=== PATIENT | male | born 1945 | race Caucasian/White ===

== ENCOUNTER → 2016-08-11 | Outpatient (CLI) | payer OTHER ==
[~2016-08-11] MED LIST: GADAVIST IV PRN
--- NOTE | 2016-08-11 13:44 | DIAGNOSTIC IMAGING REPORT ---
MRI ABDOMEN COMBO CLINICAL HISTORY: Renal mass TECHNIQUE: Imaging was performed prior to and following IV contrast injection ((9.5 cc of intravenous Gadavist). COMPARISON STUDY: Noncontrast outside CT scan dated 07/28/2016 FINDINGS: There are T2 bright nonenhancing hepatic lesions measuring up to 17 mm in diameter. These are consistent with hepatic cysts. No splenic masses are visualized. No adrenal masses are visualized. There is no evidence of abdominal aortic aneurysm. No pancreatic masses are visualized. No gallbladder abnormalities are visualized. There are few tiny renal cortical cysts. There is a 19 mm exophytic lower pole left renal mass which demonstrates mild contrast enhancement. This is consistent with a solid renal neoplasm. The renal vein appears patent. The left lower pole renal mass contains no significant fat on in and out of phase imaging. There is no pathologic adenopathy. IMPRESSION: 1. 19 mm exophytic lower pole left renal mass which demonstrate mild contrast enhancement. This is therefore consistent with a solid renal neoplasm Electronically signed by: Jonnie Ramon M.D. 08/11/2016 1:43 PM Dictated Date/Time: 08/11/2016 1:31 PM
== END | disposition home or self-care (01) ==
LOC: C.MRI 12:41
PROVIDERS: ATTEND Family Medicine
DX: N28.89 Other specified disorders of kidney and ureter (principal)

== ENCOUNTER → 2016-09-08 | Outpatient (CLI) | payer OTHER ==
--- NOTE | 2016-09-08 13:35 | PULMONARY FUNCTION TEST ---
CLINICAL DATA: 71-year-old male with a height of 71 inches and a weight of [address] Taylor Smith for evaluation of an abnormal CT scan of the chest. Spirometry pre- and post-bronchodilator, lung volumes, and DLCO were performed. FINDINGS: Prebronchodilator spirometry demonstrates mild obstructive small airways disease. FVC was 101% of predicted. FEV1 was 89% of predicted. LEZ99-09 was 55% of predicted. There was mild improvement after inhaled bronchodilator. FVC improved 2% to 102% of predicted. FEV1 improved 5% to 93% of predicted. LKK44-06 improved 16% to 64% of predicted. Lung volumes are normal. DLCO is normal. IMPRESSION: Mild obstructive small airways disease with slight improvement after inhaled bronchodilator. MTDD
--- NOTE | 2016-09-15 07:19 | CODING QUERY MEDICAL NECESSITY ---
CQSUPPORTING DIAGNOSIS NEEDED A supporting diagnosis is required for the test/procedure performed on this patient in order for us to be reimbursed by the patient's insurance. Please provide a supporting diagnosis for the following test/procedure listed below next to the test name along with your signature. *If there is no additional diagnosis for this patient that would support the following test/procedure please document that below next to the test/procedure. Test(s)/Procedure(s) that require a supporting diagnosis: CANELO 09/08/16 PULMONARY FUNCTION TESTING Provider Signature: Date: Thank you Talya Landon [facility] Information Management Once completed, please kindly fax back to [phone] For questions please call [phone]
== END | disposition home or self-care (01) ==
LOC: C.RC 10:13
PROVIDERS: ATTEND Family Medicine
DX: R93.8 Abnormal findings on diagnostic imaging of other specified body structures (principal); J45.909 Unspecified asthma, uncomplicated; J44.9 Chronic obstructive pulmonary disease, unspecified

== ENCOUNTER → 2017-03-07 | Outpatient (CLI) | payer OTHER ==
[2017-03-07 18:01] LABS: BASO % 0.9 %; BASO ABS # 0.05 K/uL (0-0.2); COMPLETE YES; IG% 0.2 %; LYMPH % 14.6 %; LYMPH ABS # 0.82 K/uL (1.2-3.4); MEAN CORPUSCULAR HEMOGLOBIN 31.5 pg (25-34); MEAN CORPUSCULAR HGB CONC 34.3 g/dl (32-36); MEAN PLATELET VOLUME 8.5 fL (7.4-10.4); MONO % 9.4 %; NEUT % 64.9 %; PLATELET COUNT 130 K/uL (130-400); RED BLOOD COUNT 4.35 M/uL (4.7-6.1); WHITE BLOOD COUNT 5.62 K/uL (4.8-10.8)
[2017-03-07 18:19] LABS: AST/SGOT 16 U/L (15-37); BLOOD UREA NITROGEN 21 mg/dl (7-18); BUN/CREATININE RATIO 24.7 (10-20); CALCIUM 8.9 mg/dl (8.5-10.1); CARBON DIOXIDE 30 mmol/L (21-32); CHLORIDE 103 mmol/L (98-107); CREATININE 0.84 mg/dl (0.60-1.40); GLUCOSE 84 mg/dl (70-99); SODIUM 136 mmol/L (136-145)
[2017-03-07 18:29] LABS: ALB/GLOB RATIO 1.1 (0.9-2); ALKALINE PHOSPHATASE 77 U/L (45-117); ALT/SGPT 30 U/L (12-78); CHOLESTEROL 154 mg/dl (0-200); CHOLESTEROL/HDL RATIO 3.9; HDL CHOLESTEROL 39 mg/dl; LDL CHOLESTEROL CALCULATED 81 mg/dl; TRIGLYCERIDES 170 mg/dl (0-150); VERY LOW DENSITY LIPOPROT CALC 34 mg/dl
== END | disposition home or self-care (01) ==
LOC: C.LABMFLN 16:36
PROVIDERS: ATTEND Family Medicine
DX: Z12.5 Encounter for screening for malignant neoplasm of prostate (principal); I10 Essential (primary) hypertension; E78.5 Hyperlipidemia, unspecified

== ENCOUNTER → 2017-08-21 | Outpatient (CLI) | payer OTHER ==
[~2017-08-21] MED LIST changes: -GADAVIST IV PRN; +OPTIRAY 320 IV PRN
--- NOTE | 2017-08-21 11:48 | DIAGNOSTIC IMAGING REPORT ---
CT SCAN OF THE ABDOMEN COMBO RENAL MASS PROTOCOL CLINICAL HISTORY: Follow-up left renal mass. COMPARISON STUDY: Abdominal CT dated 02/06/2017 and abdominal MRI dated 08/11/2016. TECHNIQUE: Before and following the IV administration of 94 cc of Optiray 320, CT scan of the abdomen is performed from the lung bases to the pelvic inlet utilizing the renal mass protocol. Images are reviewed in the axial, sagittal, and coronal planes. IV contrast was administered without complication. A dose lowering technique was utilized adhering to the principles of ALARA. CT DOSE: 1980.03 mGycm FINDINGS: Lung bases: The heart is normal in size and without pericardial effusion. There are coronary artery calcifications. There are too numerous to count pulmonary nodules scattered throughout the lung bases. No airspace consolidation is seen typical for pneumonia and there is no pleural effusion. There are numerous calcified granulomas. An irregular nodular density in the right middle lobe as seen on image #36 and measures 2.3 cm. These findings are similar to 02/06/2017. There is a tiny hiatal hernia. Calcified hilar nodes are partially visualized. Liver: The contrast-enhanced liver is normal in size, contour, and attenuation. There is no intrahepatic biliary ductal dilatation. The hepatic veins and portal veins are patent. Hepatic cysts measure up to 1.7 cm. Additional subcentimeter hepatic hypodensities also likely represent cysts but are too small for definitive characterization. Gallbladder: Unremarkable. Spleen: Normal in size and attenuation. Pancreas: Unremarkable. Adrenal glands: Unremarkable. Kidneys: The contrast enhanced kidneys demonstrate mild cortical atrophy and are without hydronephrosis. Punctate nonobstructing renal calculi are suggested on the unenhanced series. The kidneys kidneys enhance and excrete symmetrically. Again seen is an exophytic lesion arising from the lower pole of left kidney which measures 2.2 x 2.0 cm. This demonstrates faint postcontrast enhancement and has not significantly changed in size from 02/06/2017. No additional enhancing renal mass is identified. There is no evidence of urothelial lesion involving the renal collecting system bilaterally or the proximal ureters. Abdominal vasculature: The abdominal aorta is normal in course and caliber noting moderate atherosclerotic calcification. Bowel: Results portions of the small bowel and colon are normal in caliber. No bowel obstruction is seen. Moderate colonic fecal retention is identified. The appendix is well-visualized and normal. Peritoneum: There is no intraperitoneal free air or abdominal ascites. There is a small fat-containing umbilical hernia. Lymphadenopathy: None. Skeletal structures: The skeletal structures are osteopenic. Mild lumbosacral spondylosis is observed. No lytic or blastic lesions are seen. IMPRESSION: 1. There has been no significant change in the appearance of a 2.2 cm exophytic lesion arising from the lower pole of the left kidney as compared to 02/06/2017. This demonstrates faint postcontrast enhancement and should be considered renal cell carcinoma until proven otherwise. 2. No additional enhancing renal cortical mass is identified. 3. Moderate constipation. 4. Numerous pulmonary nodules and opacities are again seen at both lung bases. Correlation with the patient's pulmonary history will be required. 5. There is no retroperitoneal adenopathy or evidence of metastatic disease in the abdomen. Electronically signed by: Terrence Clancy M.D. 08/21/2017 11:47 AM Dictated Date/Time: 08/21/2017 11:36 AM
== END | disposition home or self-care (01) ==
LOC: C.CTS 11:03
PROVIDERS: ATTEND Urology
DX: N28.89 Other specified disorders of kidney and ureter (principal); N20.0 Calculus of kidney; K59.00 Constipation, unspecified; R91.1 Solitary pulmonary nodule

== ENCOUNTER 2017-11-21 06:38 | Inpatient (IN) | payer OTHER ==
[2017-10-26 09:04] VITALS: BMI 29.0
--- NOTE | 2017-10-31 16:25 | PAT Medication Instructions ---
Service Date Oct 31, 2017. Current Home Medication List Albuterol Hfa (Ventolin Hfa), 2 PUFFS INH QID PRN for COUGH/WHEEZING Aspirin (Aspirin Chewable), 81 MG PO HS Losartan Potassium (Cozaar), 50 MG PO HS Lutein-Zeaxanthin (Lutein), 5 MG PO HS Mometasone Furoate (Nasal) (Mometasone Furoate), 2 SPRAYS CAMRON DAILY PRN for PRN Omeprazole (Cvs Omeprazole), 20 MG PO QAM Rosuvastatin Calcium (Rosuvastatin Calcium), 1 TAB PO HS Medication Instructions For Your Scheduled Surgery - Hold the following medications 2 weeks prior to surgery: Lutein-Zeaxanthin (Lutein), 5 MG PO HS - Check with surgeon and prescribing physician for instructions: Aspirin (Aspirin Chewable), 81 MG PO HS - Take the following medications the morning of surgery with a sip of water: Omeprazole (Cvs Omeprazole), 20 MG PO QAM Mometasone Furoate (Nasal) (Mometasone Furoate), 2 SPRAYS CAMRON DAILY PRN for PRN (if needed) Albuterol Hfa (Ventolin Hfa), 2 PUFFS INH QID PRN for COUGH/WHEEZING (if needed) - Take the following medications as scheduled the night before surgery: Albuterol Hfa (Ventolin Hfa), 2 PUFFS INH QID PRN for COUGH/WHEEZING (if needed) Losartan Potassium (Cozaar), 50 MG PO HS Mometasone Furoate (Nasal) (Mometasone Furoate), 2 SPRAYS CAMRON DAILY PRN for PRN (if needed) Rosuvastatin Calcium (Rosuvastatin Calcium), 1 TAB PO HS If you have any questions please call us at [phone] or [phone] or [phone]
[2017-11-01 10:35] VITALS: BMI 28.0
[2017-11-01 12:09] LABS: BASO ABS # 0.05 K/uL (0-0.2); EOS % 10.4 %; EOS ABS # 0.53 K/uL (0-0.5); HEMATOCRIT 40.6 % (42-52); HEMOGLOBIN 14.2 g/dL (14.0-18.0); IG# 0.02 K/uL (0.00-0.02); LYMPH % 17.3 %; LYMPH ABS # 0.88 K/uL (1.2-3.4); MEAN CELL VOLUME 91.6 fL (80-100); MEAN CORPUSCULAR HEMOGLOBIN 32.1 pg (25-34); MEAN PLATELET VOLUME 8.8 fL (7.4-10.4); MONO % 7.6 %; MONO ABS # 0.39 K/uL (0.11-0.59); NEUT % 63.3 %; NEUT ABS # 3.23 K/uL (1.4-6.5); PLATELET COUNT 142 K/uL (130-400); RED CELL DISTRIBUTION WIDTH CV 13.3 % (11.5-14.5); RED CELL DISTRIBUTION WIDTH SD 44.9 fL (36.4-46.3)
[2017-11-01 12:17] LABS: CALCIUM 9.4 mg/dl (8.5-10.1); CREATININE 0.98 mg/dl (0.60-1.40); POTASSIUM 4.1 mmol/L (3.5-5.1)
[2017-11-21] VITALS (8 sets, daily range): BP systolic 106–137; BP diastolic 65–80; PULSE 70–104; TEMP 36.3–37; O2SAT 90–97; Ht 180.3 cm; Wt 92.9 kg
[~2017-11-21] VITALS: Ht 180.3 cm; Wt 92.9 kg
[~2017-11-21 06:38] MED LIST changes: +ASPCH81X PO; +B-CO1TAB53 PO; +CEFAZOLIN 2000MG IV PUSH 15 ML IV SCH; +LACTATED RINGER'S 1000ML 1,000 ML IV SCH; +LOSA50TA6 PO; +LUTE15CA PO; +MOME6000 NAE; +Mega Red Krill Oil PO; +OMEP20TA40 PO; -OPTIRAY 320 IV PRN; +ROSU10TA26 PO; +VNTHFA/IN INH
[2017-11-21] MEDS ORDERED: BUPIVACAINE 0.5 % 5 MG/1 ML PF 10ML VIAL ONE (06:52)
[2017-11-21] MEDS ORDERED: GELATIN SPONGE SZ 100 ONE (06:52)
[2017-11-21] MEDS ORDERED: MANNITOL 25% 50 ML VIAL ONE (07:24)
[2017-11-21] MEDS ORDERED: ALBUMIN HUMAN 5% 12.5 GM/250 ML VIAL IV ONE (07:24)
[2017-11-21] MEDS ORDERED: ACETAMINOPHEN 1000 MG/100 ML IV IV ONE (07:24)
[2017-11-21] MEDS ORDERED: DexMEDEtomidine HCL IV 100 MCG/ML VIAL IV ONE (07:24)
[2017-11-21] MEDS ORDERED: MIDAZOLAM HCL 1 MG/ML 2ML VIAL ONE (07:33)
[2017-11-21] MEDS ORDERED: NEOSTIGMINE METHYLSULFATE 5 MG/5 ML SYR ONE (07:33)
[2017-11-21] MEDS ORDERED: ONDANSETRON INJ 2 MG/ML 2 ML VIAL ONE ×2 (07:33→09:38)
[2017-11-21] MEDS ORDERED: LIDOCAINE HCL 2% 2 ML VIAL (20MG/ML) ONE (07:33)
[2017-11-21] MEDS ORDERED: DEXAMETHASONE SOD INJ 4 MG/ML VIAL ONE (07:33)
[2017-11-21] MEDS ORDERED: FENTANYL CITRATE INJ 50 MCG/1 ML 2 ML VIAL ONE (07:33)
[2017-11-21] MEDS ORDERED: GLYCOPYRROLATE INJ 0.2 MG/ML VIAL ONE ×3 (07:33→10:59)
[2017-11-21] MEDS ORDERED: HYDROmorphone INJ 2 MG/ML SYR/VIAL ONE (07:33)
[2017-11-21] MEDS ORDERED: PROPOFOL IV EMULSION 10 MG/ML 20 ML VIAL ONE ×3 (07:33→11:37)
--- NOTE | 2017-11-21 08:19 | History & Physical Bridge Note ---
H&P Re-Evaluation Bridge Note: I have examined the patient, reviewed the History & Physical and in the interval since the performance of the History & Physical I have noted the following changes of clinical significance: No changes noted
[2017-11-21] MEDS ORDERED: PHENYLEPHRINE 100MCG/ML 5ML SYR IV PRN (09:00)
[2017-11-21] MEDS ORDERED: ATROPINE SULFATE 0.1 MG/ML 5ML SYR IV PRN (09:00)
[2017-11-21] MEDS ORDERED: ONDANSETRON INJ 2 MG/ML 2 ML VIAL IV PRN ×2 (09:00→11:15)
[2017-11-21] MEDS ORDERED: EpHEDrine SULFATE INJ 50 MG/ML AMP IV PRN (09:00)
[2017-11-21] MEDS ORDERED: HYDROmorphone INJ 2 MG/ML SYR/VIAL IV PRN (09:00)
[2017-11-21] MEDS ORDERED: PHENYLEPHRINE 100MCG/ML 5ML SYR ONE (09:38)
[2017-11-21] MEDS ORDERED: PHENYLEPHRINE HCL INJ 10 MG/ML VIAL ONE (09:38)
[2017-11-21] MEDS ORDERED: KETAMINE HCL INJ 50 MG/ML 10 ML VIAL ONE (10:33)
[2017-11-21] MEDS ORDERED: SODIUM CHLORIDE 0.9% INJ 10 ML VIAL ONE (10:38)
[2017-11-21] MEDS ORDERED: FLOSEAL HEMOSTATIC MATRIX 10ML TOP ONE (10:45)
[2017-11-21] MEDS ORDERED: TISSEEL FIBRIN SEALANT 4ML TOP ONE (10:46)
[2017-11-21] MEDS ORDERED: ROCURONIUM BROMIDE 10 MG/ML 5 ML VIAL ONE (10:53)
--- NOTE | 2017-11-21 11:12 | [facility] Post Operative Brief Note ---
Immediate Operative Summary Operative Date Nov 21, 2017. Pre-Operative Diagnosis Left renal mass Post-Operative Diagnosis Left renal mass Procedure(s) Performed Robotic assisted left laparoscopic partial nephrectomy Surgeon Dr. Donald Walker MD Welder Fitter Arc Surgeon(s) Eliseo Choe MD ;Levar Rios PA-C Estimated Blood Loss 50ml Findings Consistent with Post-Op Diagnosis Specimens A. Left renal mass Drains RICKY; solorzano Anesthesia Type General Complication(s) none Disposition Accompanied Pt To Recover: yes Disposition: Recovery Room / PACU
[2017-11-21] MEDS ORDERED: ACETAMINOPHEN 325 MG TAB PO PRN (11:15)
[2017-11-21] MEDS ORDERED: ACETAMINOPHEN/CODEINE 300/30MG TAB PO PRN ×2 (11:15)
[2017-11-21] MEDS ORDERED: ALBUTEROL HFA 8 GM INHALER INH PRN (11:15)
[2017-11-21] MEDS ORDERED: MoRPHine SULFATE 2 MG/ML CARP IV PRN ×2 (11:15)
[2017-11-21 11:32] LABS: BASO % 0.3 %; BASO ABS # 0.02 K/uL (0-0.2); EOS ABS # 0.08 K/uL (0-0.5); HEMATOCRIT 36.7 % (42-52); HEMOGLOBIN 12.5 g/dL (14.0-18.0); IG# 0.03 K/uL (0.00-0.02); LYMPH % 5.3 %; LYMPH ABS # 0.41 K/uL (1.2-3.4); MEAN CELL VOLUME 91.1 fL (80-100); MEAN PLATELET VOLUME 8.3 fL (7.4-10.4); MONO % 1.8 %; MONO ABS # 0.14 K/uL (0.11-0.59); NEUT % 91.2 %; NEUT ABS # 7.03 K/uL (1.4-6.5); PLATELET COUNT 116 K/uL (130-400); RED CELL DISTRIBUTION WIDTH CV 13.4 % (11.5-14.5); RED CELL DISTRIBUTION WIDTH SD 44.7 fL (36.4-46.3); WHITE BLOOD COUNT 7.71 K/uL (4.8-10.8)
[2017-11-21 11:43] LABS: MEAN CORPUSCULAR HGB CONC 34.1 g/dl (32-36)
[2017-11-21 11:52] LABS: CALCIUM 7.9 mg/dl (8.5-10.1); CREATININE 0.84 mg/dl (0.60-1.40); POTASSIUM 4.8 mmol/L (3.5-5.1)
--- NOTE | 2017-11-21 11:59 | [facility] Operative Report ---
Operative Report Operative Date Nov 21, 2017. Pre-Operative Diagnosis Left renal mass Post-Operative Diagnosis Left renal mass Procedure(s) Performed Robotic assisted left laparoscopic partial nephrectomy Surgeon Dr. Donald Walker MD Supervisor Road Administrator Surgeon(s) Eliseo Choe MD ;Levar Rios PA-C Estimated Blood Loss 50ml Findings Warm ischemia time 8 minutes Specimens A. Left renal mass Drains RICKY; solorzano Anesthesia Type General Complication(s) none Disposition yes Recovery Room / PACU Description of Procedure Patient was identified in the preoperative holding area, appropriate informed consents reviewed and completed and the patient was transported to the operating suite. Upon arrival he received appropriate preoperative antibiotics in the form of Ancef. Adequate general anesthesia was achieved, a Solorzano catheter was introduced, and the patient was placed in a zzafh-[id number]-whby left side up lateral decubitus position where he was padded and braced in standard fashion prior to sterile prep and drape. To begin the case, Veress needle was passed in the left upper quadrant insufflation of the abdomen to 15 mmHg achieved. Tentative port sites were located on the abdominal wall, and a 12 mm Visiport was introduced just lateral to the rectus approximately 2 cm above the umbilicus. Inspection after placement revealed adhesive disease in the left lateral aspect of the abdominal wall there were no midline adhesions. I looked at my tentative port locations, which included a robotic port just lateral to the rectus muscle 2 fingerbreadths below the costal margin, a second robotic port approximately 5 cm inferior to the initial 12 mm Visiport and 2 cm lateral. Additionally located in area infraumbilically and supraumbilically to place to 12 mm podiatry assistant ports. All of these locations were free of adhesions and I was able to place these ports under direct vision without difficulty. We then docked the robot and I began by lysing adhesions for approximately 10 minutes. After opening the adhesions and exposing the underlying colon, was able to medialize the colon and gently dissected the spleen cephalad. I continue to trace the area behind the colon until identified the gonadal vein. The ureter was located just lateral to this and I was able to create a plane behind the gonadal and ureter onto the psoas muscle and elevate both structures. We traced the anterior surface of the gonadal vein until it intersected with the renal vein. At that time I was able to create a new plane lateral to the gonadal vein and excluded from my packet which was elevating the kidney. Better visualization of the renal vein and was able to fully dissect circumferentially around the vein to create a potential passage for a bulldog clamp. Immediately posterior to the renal vein, encountered the renal artery was able to trace this back to its junction with the aorta. I exposed the length of approximately 3 cm and made sure was clear circumferentially of all adhesions and other tissue. Of note, immediately adjacent to the vein there was a separate vascular structure which was directed towards the kidney, I skeletonize this fully without transecting it. Before placing clamps, I turned my attention of the lower pole of the kidney and identification of the tumor. A laparoscopic ultrasound was advanced through 1 of the podiatry assistant ports and ultrasonography of the kidney completed. Inspection of the lower pole revealed a clearly identifiable tumor protruding from the inferior medial aspect of the kidney. I subsequently opened Gerota's fascia and expose healthy appearing renal parenchyma circumferentially around the tumor. Of note the medial aspect of the tumor had relatively close oximetry to the ureter and renal pelvis but I was able to easily avoid the structures. After confirming with the second renal ultrasound, I marked my locations around the perimeter of the tumor from my resection. I preplaced to V lock sutures into the abdomen. 12.5 g of mannitol was introduced via the IV. Time was marked as replaced a short straight bulldog clamp across the primary renal artery, the second vascular structure inferior to the renal vein was controlled with a short curved bulldog clamp, and a long bulldog clamp was placed across the renal vein. And then turned my attention to the tumor, there was appropriate blanching of the kidney and utilizing monopolar scissors, was able to use a combination of gentle electrocautery and sharp dissection entirely resect the tumor. There appeared to be a small violation of the collecting system at the deepest aspect of this resection. There was excellent hemostasis. After removing the tumor, grabbed her preplaced V lock suture and performed a running renoraphy with sliding clip technique. After 3 passes across the defect, I was able to unclamp the vascular structures in the hilum. In total, warm ischemia time was 8 minutes. I placed one additional stitch after unclamping, but there was excellent hemostasis from the defect. We placed FloSeal coagulant across the defect followed by Tisseel over the top. Gerota's fascia was reapproximated to cover the defect. A RICKY drain was introduced through the lateralmost port. The robot was undocked after collecting the specimen into an Endo Catch bag. Specimen was extracted through the infraumbilical midline port. Fascia in this location was closed with 2 Vicryl [id number] sutures. The supraumbilical incision was closed in the same fashion with a single [id number] Vicryl suture. The 12 mm camera port lateral to the rectus muscle was closed in the same fashion. Skin and all incisions was infiltrated with half percent Marcaine before closure with 4-0 Monocryl. Dermabond was placed over the incisions. Drain was sutured in place utilizing 0 silk. Case was subsequently concluded the patient extubated and taken to the PACU in stable condition. Of note, Dr. Eliseo Choe assisted me throughout the renal tumor resection and reconstruction. Levar Rios assisted me throughout the remaining aspects of the case and was present from beginning to end of the case. I attest to the content of the Intraoperative Record and any orders documented therein. Any exceptions are noted below.
--- NOTE | 2017-11-21 12:18 | Anesthesiology Progress Note ---
Anesthesia Post Op Note Date & Time Nov 21, 2017 at 12:18 Vital Signs Pain Intensity: 0 Vital Signs Past 12 Hours Date Time Temp Pulse Resp B/P (MAP) Pulse Ox O2 Delivery O2 Flow Rate FiO2 11/21/17 12:00 36.6 71 16 108/70 93 Nasal Cannula 4 Oxymask Partial Rebreather 11/21/17 11:50 76 16 119/67 95 Nasal Cannula 4 Oxymask Partial Rebreather 11/21/17 11:40 71 15 117/59 99 Oxymask 8 11/21/17 11:30 72 15 106/65 96 Oxymask 8 11/21/17 11:21 36.3 76 16 117/72 96 Oxymask 8 11/21/17 07:17 36.6 87 20 136/80 97 Room Air Notes Mental Status: alert / awake / arousable, participated in evaluation Pt Amnestic to Procedure: Yes Nausea / Vomiting: adequately controlled Pain: adequately controlled Airway Patency, RR, SpO2: stable & adequate BP & HR: stable & adequate Hydration State: stable & adequate Anesthetic Complications: no major complications apparent
[2017-11-21] MEDS ORDERED: FLUTICASONE PROPIONATE NA SPR 16 GM BTL PRN (13:00)
[2017-11-21] MEDS ORDERED: NURSING VERBAL MED ORDER ONE (13:00)
[2017-11-21] MEDS: LACTATED RINGER'S 1000ML 1,000 ML IV SCH ×2 (14:34→22:18)
[2017-11-21] MEDS: CEFAZOLIN IV 1,000 MG in SYRINGE 0 ML IV SCH ×2 (16:38→23:52)
[2017-11-21] MEDS: LOSARTAN POTASSIUM 50 MG TAB PO SCH (21:23)
[2017-11-21] MEDS: ROSUVASTATIN CALCIUM 10 MG TAB PO SCH (21:23)
[2017-11-22 02:49] VITALS: BP 124/75; PULSE 91; TEMP 36.6; O2SAT 93
[2017-11-22] MEDS: LACTATED RINGER'S 1000ML 1,000 ML IV SCH ×3 (05:30→21:05)
[2017-11-22 05:35] LABS: BASO % 0.1 %; BASO ABS # 0.01 K/uL (0-0.2); HEMATOCRIT 35.2 % (42-52); HEMOGLOBIN 11.7 g/dL (14.0-18.0); IG# 0.02 K/uL (0.00-0.02); LYMPH % 7.4 %; LYMPH ABS # 0.81 K/uL (1.2-3.4); MEAN CELL VOLUME 91.4 fL (80-100); MEAN CORPUSCULAR HEMOGLOBIN 30.4 pg (25-34); MEAN CORPUSCULAR HGB CONC 33.2 g/dl (32-36); MEAN PLATELET VOLUME 8.8 fL (7.4-10.4); MONO % 5.3 %; MONO ABS # 0.58 K/uL (0.11-0.59); NEUT ABS # 9.58 K/uL (1.4-6.5); PLATELET COUNT 137 K/uL (130-400); RED CELL DISTRIBUTION WIDTH CV 13.6 % (11.5-14.5); RED CELL DISTRIBUTION WIDTH SD 45.4 fL (36.4-46.3)
[2017-11-22 06:05] LABS: CALCIUM 8.1 mg/dl (8.5-10.1); CREATININE 0.96 mg/dl (0.60-1.40)
[2017-11-22 07:55] VITALS: BP 134/82; PULSE 96; TEMP 37.1; O2SAT 92
[2017-11-22] MEDS ORDERED: ACET300T3 PO (08:08)
--- NOTE | 2017-11-22 08:10 | Discharge Instructions ---
Discharge Instructions Date of Service Nov 22, 2017. Admission Reason for Admission: Left Renal Mass Discharge Discharge Diagnosis / Problem: left renal mass Discharge Goals Goal(s): Decrease discomfort, Improve function, Increase independence, Improve disease control, Prevent Disease Progression Activity Recommendations Activity Limitations: per Instructions/Follow-up section Lifting Limitations: none, no more than 25 pounds Exercise/Sports Limitations: gradually increase as tolerated, until after follow-up appointment May Resume Sexual Activity: when tolerated Shower/Bathe: tomorrow Driving or Machine Use: resume 1 day after discharge . Instructions / Follow-Up Instructions / Follow-Up Please keep your previously scheduled follow up appointment with Dr. Walker. Please call immediately if you experience bright red blood in your urine or if you have sudden onset of severe left flank pain. Current Hospital Diet Patient's current hospital diet: Clear Liquid Diet Discharge Diet Recommended Diet: Regular Diet Procedures Procedures Performed: Robotic assisted left laparoscopic partial nephrectomy Pending Studies Studies pending at discharge: no Medical Emergencies . Who to Call and When: Medical Emergencies: If at any time you feel your situation is an emergency, please call 911 immediately. . Non-Emergent Contact Non-Emergency issues call your: Urologist Call Non-Emergent contact if: you have a fever, temperature is above 101.5, your pain is not controlled, your pain is worsening . . "Provider Documentation" section prepared by Ivan Mckeon. . MD Drug Monitoring Program Search Results: patient reviewed within database, no issues identified
[2017-11-22] MEDS: PANTOprazole SOD 40 MG TAB PO SCH (08:50)
--- NOTE | 2017-11-22 09:40 | Clinical Documentation Query ---
CLINICAL DOCUMENTATION QUERY Dr. DELCID, In your clinical opinion is this patient being managed for: ( x) possible/suspected/likely L renal cell carcinoma, still to be ruled out ( ) Not Agree ( ) Other explanation of clinical findings (No explanation is considered a No Response) ( ) Unable to determine ( ) Need to Discuss (Phone CDS or qliq) (No discussion is considered a No Response) The medical record reflects the following clinical findings, treatment, and risk factors. Clinical Indicators: 72 yo male presenting with a L renal mass. Radiology report from August 2017 indicates lesion should be considered renal cell carcinoma until proven otherwise. Treatment: L partial nephrectomy, pending pathology Risk Factors: age Please clarify and document your clinical opinion in the progress notes and discharge summary. Terms such as "probable", "suspected", "likely", "questionable", "possible", or "still to be ruled out" are acceptable. IF IN AGREEMENT, YOU MUST DOCUMENT ABOVE DIAGNOSTIC STATEMENT IN DAILY PROGRESS NOTES AND DISCHARGE SUMMARY. This document is not part of the patient's record. Thank You, Holly England, RN [phone]
--- NOTE | 2017-11-22 10:44 | Progress Note ---
Progress Note Date of Service Nov 22, 2017. Progress Note S: Doing extremely well - no pain - OOB - tolerating a diet - solorzano annoying him O: VSS - borderline tachy at one point overnight - labs stable - NAD AAOx3 RICKY serosang - more sang Solorzano clear Incisions appropriate A/P: POD #1 s/p L robotic partial nephrectomy - rashad out - RICKY out later today if he continues to do well - pos d/c home this afternoon or tomorrow
[2017-11-22 11:49] VITALS: BP 123/82; PULSE 90; TEMP 37.2; O2SAT 94
[2017-11-22 15:28] VITALS: BP 133/72; PULSE 84; TEMP 37.3; O2SAT 92
[2017-11-22] MEDS: ROSUVASTATIN CALCIUM 10 MG TAB PO SCH (21:04)
[2017-11-22] MEDS: LOSARTAN POTASSIUM 50 MG TAB PO SCH (21:04)
[2017-11-22 23:21] VITALS: BP 132/76; PULSE 96; TEMP 37.5; O2SAT 91
[2017-11-23] MEDS: LACTATED RINGER'S 1000ML 1,000 ML IV SCH (04:53)
[2017-11-23 07:19] VITALS: BP 147/86; PULSE 93; TEMP 37; O2SAT 91
[2017-11-23] MEDS: PANTOprazole SOD 40 MG TAB PO SCH (08:10)
[2017-11-23 09:25] VITALS: BP 147/86; PULSE 93; TEMP 37; O2SAT 91
--- NOTE | 2017-11-28 08:20 | EDITING REQUIRED CODING QUERY ---
PATHOLOGY Dr. Walker, To promote full compliance with coding requirements relating to patient care, physician participation is requested in all cases of bindery machine operator uncertainty. Please assist us with the question(s) below: Please review the Pathology report and please document any relevant diagnosis(es) below: Papillary renal cell carcinoma Diagnosis(es): Thank you for your time, FAWAD Cotto, DIRECTOR OF ASSESSING
--- NOTE | 2017-11-28 08:38 | Discharge Summary ---
Discharge Summary Date of Service Nov 28, 2017. Admission Date/Reason Nov 21, 2017 at 06:39 Left Renal Mass. Discharge Date/Disposition Nov 22, 2017 Home Diagnosis Principal Diagnosis: Papillary renal cell carcinoma Procedure(s) Performed Robotic assisted laparoscopic partial nephrectomy Medication Reconciliation New Medications: Acetaminophen/Codeine (Tylenol W/Codeine #3) 300 Mg/30 Mg Tab 2 TAB PO Q8 PRN for Pain, #30 TAB Continued Medications: Albuterol Hfa (Ventolin Hfa) 200 Puffs/66394 Mcg Aers 2 PUFFS INH QID PRN for COUGH/WHEEZING, #1 INHALER Aspirin (Aspirin Chewable) 81 Mg Chew 81 MG PO HS Losartan Potassium (Cozaar) 50 Mg Tab 50 MG PO HS, TAB Mometasone Furoate (Nasal) (Mometasone Furoate) 50 Mcg/Act Spr 2 SPRAYS CAMRON DAILY PRN for PRN Omeprazole (Cvs Omeprazole) 20 Mg Tab 20 MG PO QAM Rosuvastatin Calcium (Rosuvastatin Calcium) 10 Mg Tab 1 TAB PO HS Admission Physical Exam As per Admitting History & Physical. Hospital Course Patient admitted for robotic assisted laparoscopic left partial nephrectomy, details of the procedure as dictated previously in the operative report. In summary, he tolerated the procedure extremely well. He was in stable condition on the floor on postoperative day 1, he had a Venegas catheter removed and a RICKY left in place for the next 24 hours. The RICKY was removed after new minimal change in his output. His incisions were appropriate, he was ambulatory, he was tolerating a diet, his pain was controlled. He was in stable condition at the time of discharge home. Discharge Instructions Please refer to the electronic Patient Visit Report (Discharge Instructions) for additional information.
== END 2017-11-23 10:26 | disposition home or self-care (01) | DRG 658 ==
LOC: C.ACU 06:38 → C.MSN 06:39 → ENRESERV 11:48
PROVIDERS: ADMIT Urology; ATTEND Urology
PROC: 8E0W4CZ Robotic Assisted Procedure of Trunk Region, Percutaneous Endoscopic Approach (ICD-10-PCS; principal; 2017-11-21 08:30)
PROC: 0TB14ZZ Excision of Left Kidney, Percutaneous Endoscopic Approach (ICD-10-PCS; principal; 2017-11-21 08:30)
DX: C64.2 Malignant neoplasm of left kidney, except renal pelvis (principal); J45.909 Unspecified asthma, uncomplicated; I25.10 Atherosclerotic heart disease of native coronary artery without angina pectoris; I10 Essential (primary) hypertension; E78.5 Hyperlipidemia, unspecified; K21.9 Gastro-esophageal reflux disease without esophagitis; Z79.82 Long term (current) use of aspirin; Z79.899 Other long term (current) drug therapy; Z85.820 Personal history of malignant melanoma of skin